=== PATIENT | female | born 1965 | race Caucasian/White ===

== ENCOUNTER 2019-01-25 14:26 | Emergency (ER) | payer BC ==
[2019-01-25 14:41] VITALS: BP 185/87; PULSE 86; RESP 18; TEMP 98.2
[2019-01-25 16:09] LABS: Appearance,Urine Cloudy (Clear); Bacteria,Urine Rare /hpf; Bilirubin,Urine Negative (Negative); Blood,Urine Moderate (Negative); Color,Urine Yellow; Glucose,Urine (UA) Negative (Negative); Ketones,Urine Negative (Negative); Leukocyte Esterase,Urine Large (Negative); Mucus,Urine Rare /hpf; Nitrite,Urine Negative (Negative); Protein,Urine Negative (Negative); RBC,Urine 63 /hpf (0-5); Specific Gravity,Urine 1.023 (1.001-1.035); Squamous Epithelial Cell,Urine 4 /hpf (0-4); Urobilinogen,Urine <2.0 mg/dL (<2.0); WBC,Urine >182 /hpf (0-5)
[2019-01-25] MEDS ORDERED: SULFAMETH-TMP DS STARTER PACK 2 TAB BTL PO STA (17:30)
--- NOTE | 2019-01-25 17:30 | ED ---
General Adult HPI - General Chief complaint: Vaginal Bleeding Stated complaint: vaginal bleeding Time Seen by Provider: 01/25/19 14:46 Source: patient, RN notes reviewed Mode of arrival: ambulatory Limitations: no limitations - History of Present Illness Initial comments: 54-year-old female with history of hyperlipidemia, hypertension, thyroid disorder, UTI presents to the emergency department for a chief complaint of possible vaginal bleeding or hematuria. Patient states this started about 5 days ago. States she is seeing small spotting in her underwear. She does have a hysterectomy several years ago. Patient states she also has the sensation that she has a urinary tract infection. Is expressing some dysuria. Denying any abdominal pain or fevers. No flank pain.Patient has no other complaints at this time including shortness of breath, chest pain, abdominal pain, nausea or vomiting, headache, or visual changes. - Related Data Previous Rx's Medication Instructions Recorded Sulfamethox-Tmp 800-160Mg [Bactrim 1 tab PO Q12HR #20 tab 01/25/19 DS 800-160 mg] Allergies Allergy/AdvReac Type Severity Reaction Status Date / Time ciprofloxacin [From Cipro] Allergy Rapid Verified 01/25/19 14:40 Heart Rate ranitidine [From Zantac] Allergy Rash/Hives Verified 01/25/19 14:40 Tetanus Vaccines and Toxoid Allergy Rash/Hives Verified 01/25/19 14:40 erythromycin base AdvReac Nausea & Verified 01/25/19 14:40 Vomiting & Diarrhea Tetracyclines AdvReac Nausea & Verified 01/25/19 14:40 Vomiting & Diarrhea Review of Systems ROS Statement: Those systems with pertinent positive or pertinent negative responses have been documented in the HPI. ROS Other: All systems not noted in ROS Statement are negative. Past Medical History Past Medical History: Hyperlipidemia, Hypertension, Thyroid Disorder Additional Past Medical History / Comment(s): divertolsis, deviated septum, uti History of Any Multi-Drug Resistant Organisms: None Reported Past Surgical History: Adenoidectomy, Section, Cholecystectomy, Hysterectomy, Orthopedic Surgery, Tonsillectomy Additional Past Surgical History / Comment(s): cyst removal, thyroidectomy, breast biopsy, arthroscoe, torn meniscus Past Psychological History: No Psychological Hx Reported Smoking Status: Former smoker Past Alcohol Use History: None Reported Past Drug Use History: None Reported General Exam Limitations: no limitations General appearance: alert, in no apparent distress Head exam: Present: atraumatic, normocephalic, normal inspection Eye exam: Present: normal appearance, PERRL, EOMI. Absent: scleral icterus, conjunctival injection, periorbital swelling ENT exam: Present: normal exam, mucous membranes moist Neck exam: Present: normal inspection, full ROM. Absent: tenderness, me ningismus, lymphadenopathy Respiratory exam: Present: normal lung sounds bilaterally. Absent: respiratory distress, wheezes, rales, rhonchi, stridor Cardiovascular Exam: Present: regular rate, normal rhythm, normal heart sounds. Absent: systolic murmur, diastolic murmur, rubs, gallop, clicks External exam: Present: normal external exam. Absent: erythema, swelling, lesions, lacerations, ecchymosis Speculum exam: Present: normal speculum exam. Absent: erythema, vaginal discharge, cervical discharge, vaginal bleeding, foreign body, tissue, laceration By manual exam: Present: normal by manual exam. Absent: cervical motion tenderness, adnexal tenderness, adnexal mass, uterine tenderness Course Vital Signs 01/25/19 14:32 Temperature 98.2 F Pulse Rate 86 Respiratory 18 Rate Blood Pressure 185/87 O2 Sat by Pulse 97 Oximetry Medical Decision Making - Medical Decision Making 54-year-old female presents for possible urinary tract infection versus vaginal bleeding. States this has been going on for 5 days. States she is noticing some spotting in her underwear and is not sure if it is because she has a UTI or vaginal bleeding. History of hysterectomy several years ago. Vitals are stable, and no fevers. Speculum exam was performed to evaluate for any vaginal bleeding. I do not see any significant evidence. Cultures were obtained of the vagina as well as gonorrhea and chlamydia which are pending. Trichomonas negative. Urinalysis does show large surgical site esterase with 182 white blood cells. No CVA tenderness. Patient has not Keflex for 4 days but stopped this 2 days ago. Therefore patient will be treated with Bactrim and culture will be sent. However I did discuss returning if she develops any fevers or flank pain. She does agree. She will follow up with both gynecology as well as urology. She lives in [place] and already has these referrals. - Lab Data Lab Results 01/25/19 01/25/19 Range/Units 15:55 15:55 Urine Color Yellow Urine Appearance Cloudy H (Clear) Urine pH 6.0 (5.0-8.0) Ur Specific [place] 1.023 (1.001-1.035) Urine Protein Negative (Negative) Urine Glucose (UA) Negative (Negative) Urine Ketones Negative (Negative) Urine Blood Moderate H (Negative) Urine Nitrite Negative (Negative) Urine Bilirubin Negative (Negative) Urine Urobilinogen <2.0 (<2.0) mg/dL Ur Leukocyte Esterase Large H (Negative) Urine RBC 63 H (0-5) /hpf Urine WBC >182 H (0-5) /hpf Urine WBC Clumps Many H (None) /hpf Ur Squamous Epith Cells 4 (0-4) /hpf Urine Bacteria Rare H (None) /hpf Urine Mucus Rare H (None) /hpf Trichomonas Ag (Rapid) Negative (Negative) Disposition Clinical Impression: Urinary tract infection Disposition: HOME SELF-CARE Condition: Good Instructions (If sedation given, give patient instructions): Urinary Tract Infection in Women (ED) Additional Instructions: Please take Bactrim as directed. Please follow-up with primary care in 1-2 days return here to the emergency department if you have any worsening symptoms. Prescriptions: Sulfamethox-Tmp 800-160Mg [Bactrim DS 800-160 mg] 1 tab PO Q12HR #20 tab Is patient prescribed a controlled substance at d/c from ED?: No Referrals: Nonstaff,Physician [Primary Care Provider] - 1-2 days Time of Disposition: 17:29
[2019-01-27 14:23] LABS: C. trachomatis,PCR Negative (Neg,Equiv); Chlamydia trachomatis Source Vagina
[2019-01-27 14:26] LABS: N. gonorrhoeae,PCR Negative (Neg,Equiv); Neisseria Source Vagina
== END 2019-01-25 17:39 | disposition home or self-care (01) ==
LOC: EC 14:26
DX: N39.0 Urinary tract infection, site not specified (principal); Z87.891 Personal history of nicotine dependence; Z88.1 Allergy status to other antibiotic agents; Z88.7 Allergy status to serum and vaccine; Z88.8 Allergy status to other drugs, medicaments and biological substances; Z90.710 Acquired absence of both cervix and uterus; Z90.49 Acquired absence of other specified parts of digestive tract
CPT/HCPCS: 81001; 87070; 87086; 87205; 87491; 87591; 87808; 99284